=== PATIENT | female | born 1965 | race Native Hawaiian/Other Pacific Islander ===

== ENCOUNTER 2017-06-09 13:43 | Emergency (ER) | payer OTHER ==
[~2017-06-09] VITALS: Ht 162.6 cm; Wt 97.1 kg
[~2017-06-09 13:43] MED LIST: AMOXIL500 MG PO; AUGMENTIN 875 M1 TAB PO; CIPRO 500MG TA500 MG PO; DILAUDID4 MG PO; LORTAB 5/500 501 TAB PO; NOMEDS; NOMEDS XX; SULFAMETHOXAZOL1 TA6 PO; TAMIFLU 75MG CA75 MG PO; ULTRACET 325 MG1 TAB PO
--- OUTSIDE RECORDS SUMMARY | 2017-06-09 13:50 | External Medical Summary Rpt | CCD ---
Author Author [employer] Organization [employer] Address Unknown Phone Unavailable Purpose Continuity of Care Document - through 2016
--- OUTSIDE RECORDS SUMMARY | 2017-06-09 13:50 | External Medical Summary Rpt | CCD ---
Author Author [facility] Address Unknown Phone Purpose Continuity of Care Document - through 2016 Problems Code Diagnosis DOS Provider Status N93.9 ABNORMAL UTERINE AND VAGINAL BLEEDING, UNSPECIFIED R10.2 PELVIC AND PERINEAL PAIN
--- OUTSIDE RECORDS SUMMARY | 2017-06-09 13:51 | External Medical Summary Rpt | CCD ---
Demographics Preferred Language Haitian Marital Status Unknown Pentecostal Affiliation Unknown Race Unknown Ethnic Group Unknown Author Author , LILY BAUTISTA Address Unknown Phone Immunization No patient found.
--- OUTSIDE RECORDS SUMMARY | 2017-06-09 13:51 | External Medical Summary Rpt ---
Author Author LILY Olivera, [employer] Organization [employer] Address Unknown Phone Unavailable
--- OUTSIDE RECORDS SUMMARY | 2017-06-09 13:51 | External Medical Summary Rpt | CCD ---
Demographics Preferred Language Welsh Marital Status Unknown Buddhism Affiliation Unknown Race Unknown Ethnic Group Unknown Author Author , LILY BAUTISTA Address Unknown Phone Immunization No patient found.
[2017-06-09 14:18] LABS: UTC STREP SCREEN NOT DETECTED (NOTDETECTED)
--- NOTE | 2017-06-09 14:37 | Urgent Treatment Center Report ---
History of Present Issue Date/Time Seen by Provider 06/09/17 1437 Visit Reason Pt arrived:Walked Presenting Problem:COUGH, SORE THROAT, CONGESTION X1 WEEK Location if Accident: Onset of symptoms date/time:/ or onset unknown for:MEDICAL HX UNKNOWN Have you (or family members/close friends) recently traveled outside the [place]? N If Yes, where/when: Have you had exposure to infectious disease within the past month? TB? Other? Specify: c/o cough, chest congestion, sore throat, PND, achy, chills x 1 week. unsure about fevers. Reports coughing so much that now her ribs and throat feel worse. Little to no improvement w/ halls, alkaseltzer and unknown cough/cold medication. Son in law w/ similiar symptoms. + tobacco abuse. Denies hx of COPD or inhaler use. + SOA w/ wheezing at times. Left work to get seen today. Needs work excuse. pt very nervous and reports a hx of white coat syndrome. Hx of HTN but hasn't taken medications "for a long time". No PCP at this time. "just my female doctor" Denies CP or vision change. Has had intermittent headaches but contributes that to cough. Source patient Exam Limitations no limitations ALLERGIES Coded Allergies: No Known Allergies (04/07/16) History Medical History General Angina: No IN: No Hypertension? No Hyperlipidemia? No COPD? No Asthma? No CVA? No Seizures? No Diabetes? No GB Disease: No MRSA? No TB? No Cancer? No Immunization HX DT/Tetanus UNKNOWN Flu NEVER Pneumonia Refuses Surgical Hx Previous Surgery?Y Social History Smoking Hx Smoker: Current Every Day Smoker Tobacco: Yes Type Cigarettes Packs/day < 1 Pack Alcohol Alcohol: Yes Review of Systems All Other Systems Reviewed and Negative Constitutional see HPI, denies weakness Eyes denies drainage ENT see HPI, nose discharge, nose congestion, throat pain (worse in morning and w/ cough). denies: ear pain. Respiratory see HPI Cardiovascular denies chest pain, denies edema, denies palpitations Gastrointestinal denies abdominal pain, denies nausea, denies vomiting Musculoskeletal see HPI Skin denies rash Psychiatric/Neurological headache (mild, intermittent), denies weakness, denies other (dizziness) Physical Exam Vital Signs Vital Signs Date Time Temp Pulse Resp B/P Pulse O2 O2 Flow FiO2 Ox Delivery Rate 06/09 1653 98.0 94 20 238/136 95 06/09 1619 98.0 94 20 238/136 95 06/09 1356 98.0 94 20 243/130 95 manually 240/128 (ANGEL MEREDITH APRN) General Appearance normal appearance, no apparent distress Ear, Nose, Throat normal ENT inspection (x/ nasal congestion) Neck non-tender, supple Respiratory Status Yes: trachea midline, chest symmetrical, non productive cough (worse with deep breaths). No: respiratory distress, use of accessory muscles, pain on inspiration, pain on expiration. Lung Sounds anterior: rhonchi. posterior: rhonchi. bilateral: rhonchi, wheezing ( expiratory throughout). Cardiovascular regular rate/rhythm, no peripheral edema, no murmur Neurologic alert, oriented x 3 Mental status normal mood/affect Skin normal color, warm/dry Lymphatic no adenopathy Medical Decision Making LABS/Meds/Orders Pt receiving controlled substance in ED? No Results/Orders Laboratory Tests 06/09/17 1410: Influenza Type A Ag NOT DETECTED, Influenza Type B Ag NOT DETECTED, Group A Strep Screen NOT DETECTED Current Medication Orders Sig/Yamileth Start time Last Medication Dose Route Stop Time Status Admin Albuterol/Ipratropium 3 ML ONCE ONE 06/09 1515 DC 06/09 INH 06/09 1516 1513 Methylprednisolone 125 MG ONCE ONE 06/09 1515 DC 06/09 Sodium Succinate IM 06/09 1516 1513 Albuterol/Ipratropium 0 .STK-MED ONE 06/09 1513 DC INH Methylprednisolone 0 .STK-MED ONE 06/09 1512 DC Sodium Succinate .ROUTE Orders Procedure Date/time Status RT REQUEST DUONEB 06/09 1506 Active UTC STREP SCREEN 06/09 1410 Complete UTC FLU A,B 06/09 1410 Complete XRAY/CT/US XRAY/CT/US XRAY chest XR interpretation by reviewed by me (w/ Dr. Granados, VANITA YOUNG) Xray Results no acute finding Progress [facility] Progress Notes Date 06/09/17 Time 1605 Comment Pt describes symptoms as "improving" since steroid and neb treatment. Less coughing and feels she can breath easier. Rhochi improved, still end exp wheezing throughout. Departure Departure Time of Disposition 1611 Disposition DC Home or Self Care(routine) Clinical Impression Primary Impression: Acute bronchitis Qualifiers: Bronchitis organism: unspecified organism Qualified Code: J20.9 - Acute bronchitis, unspecified Secondary Impressions: High blood pressure Qualifiers: Hypertension type: unspecified Qualified Code: I10 - Essential ( primary) hypertension Tobacco abuse Condition STABLE Referrals HARDEEP MARS Call their office tomorrow morning and request new patient appointment. tell them you were in the [facility] today and that Angel tried to call and get you a new patient appt NATHAN due to high blood pressure but their phones were already off. If you can NOT get an appointment this week, call me at the clinic [phone] as you may have no option but to present to the ER to get your blood pressure under control. Patient Instructions DI for Acute Bronchitis, DI for High Blood Pressure, How to Quit Tobacco Products Additional Instructions * Your BP did not improve after visit/treatment so I doubt this is white coat or symptom related. You have dangerously high blood pressure!!!! I advised treatment in the ER because your blood pressure is dangerously high as we discussed. You opted out of going to ER and instead, chose to go home with the plan to return to ER for new or worsening symptoms. You are aware that even without symptoms, you are at risk of having a heart attack, stroke or other life threatening event caused by elevated blood pressure. It is VERY important you seek treatment for your dangerously high blood pressure!!!! * STOP SMOKING!!!! * start antibiotic today. Be sure to complete entire prescription even if feeling better. * Monitor Temp. Tylenol every 4 hours as needed no more then 5 times a day or 4000mg in 24 hours and/or ibuprofen every 6 hours as needed no more then 3200mg in 24 hours (as long as your primary care doctor has told you that it is ok to take both) for fever/aches/pain. ER if fever no less than 101 despite tylenol and ibuprofen * humidifier/vaporizer/hot steamy shower * Inhaler every 4-6 hours as needed like we discussed. If unsure how to use it, ask pharmacist to demonstrate how. Should help open airways and improve cough, wheezing, shortness of breath. * Mucinex during the day for your cough and cough suppressant only at night. Be sure to drink lots of water. Insurance may not cover a prescription of mucinex. Might be cheaper to get 400mg tablets and take 2 tablets morning, midday and evening all with lots of water. * Promethazine DM cough syrup will cause drowsiness. Use it only at night. No driving, operating machinery or caring for small children after taking it. * No further steroids given how high your blood pressure is. I called the pharmacy and cancelled the steroid prescription. Discharge Counseling Counseled pt/family regarding diagnosis, test results, medications/RX, home care, follow up needs Prescriptions Current Visit Scripts ALBUTEROL (Proventil Hfa Inhaler) 1-2 PUFF IH Q4-6H PRN PRN SOA, wheezing #1 CAN Azithromycin (Zithromycin (Z-RACHEL) 250MG Tab) 250 MG PO DAILY #6 TAB TAKE TWO (2) TABLETS ON DAY 1, THEN ONE (1) TABLET DAY #2 THRU #5 Prednisone (Prednisone 20MG) 20 MG PO BID #10 TAB PROMETHAZINE/DEXTROMETHORPHAN (Promethazine-Dm Syrup) 10 ML PO QHSP PRN cough #90 ML Comments pt refused BP treatment and further HTN evaluation. Reports her symptoms are not related to that and just wants to go home. LENGTHY education re: risks of dangerously elevated BP and still declines. Will return to ER for new or worsening symptoms and will call a primary care provider tomorrow and try to get new pt appt. Aware this can take weeks and tried to call the [facility] group and squeeze her in this week but they were already closed. Pt has the number to call them tomorrow. at [phone]
--- NOTE | 2017-06-09 16:12 | RADIOLOGY REPORT PS360 ---
CHEST(2 VIEWS-NOT PORTABLE) HISTORY: tobacco abuse, SOA and productive cough x 1 week ORDERING PHYSICIAN: JOJO MEREDITH APRN PATIENT AGE: 52 years COMPARISON: 08/11/2010 FINDINGS: The cardiomediastinal silhouette and pulmonary vascularity are within normal limits. There is mild ectasia/tortuosity of the descending thoracic aorta. The lungs are clear bilaterally. There is mild reversal of the thoracic kyphosis. IMPRESSION: No change with no acute finding
[2017-06-09] MEDS ORDERED: PROMETHAZINE D118 ML PO (16:14)
[2017-06-09] MEDS ORDERED: PREDNISONE 20MG20 MG PO (16:14)
[2017-06-09] MEDS ORDERED: ZITHROMAX Z PA250 MG PO (16:14)
[2017-06-09] MEDS ORDERED: PROVENTIL0.09 MG/A1 IH (16:14)
[2017-06-09 16:53] VITALS: BP 238/136
== END 2017-06-09 16:54 | disposition home or self-care (01) ==
LOC: UTC 13:43
PROVIDERS: Nurse Practitioner Family
DX: J20.9 Acute bronchitis, unspecified (principal); I10 Essential (primary) hypertension; F17.210 Nicotine dependence, cigarettes, uncomplicated